=== PATIENT | male | born 1945 | race Caucasian/White ===

== ENCOUNTER 2019-10-15 11:25 | Emergency (ER) | payer MEDICARE, BC ==
[2019-10-15 11:50] VITALS: PULSE 74
--- NOTE | 2019-10-15 12:09 | EDM.PDOC ---
ED HPI GENERAL MEDICAL PROBLEM - General Chief Complaint: Laceration Stated Complaint: CUT HIS HEAD Time Seen by Provider: 10/15/19 11:42 Source of Information: Reports: Patient - History of Present Illness INITIAL COMMENTS - FREE TEXT/NARRATIVE: Srini is a 74 y/o male who comes to the ER via POV accompanied by his . He reports that last night about 0400 he fell out of bed and his head on the edge of an end table. He remembers sitting up by his bed on the floor and feeling blood run down his face. He does not remember falling out of bed, doesn't think he had LOC. He is on Coumadin 5mg daily for DVT prophylaxis. Treatments ONLINE CONTENT COORDINATOR: Reports: Cold Therapy Left Face/Facial Pain Score (Numeric/FACES): 2 - Related Data Allergies Allergy/AdvReac Type Severity Reaction Status Date / Time latex Allergy Blisters Verified 10/15/19 11:50 Home Meds: Home Meds Simvastatin 5 mg PO DAILY 03/05/13 [History] Warfarin Sodium [Jantoven] 5 mg PO DAILY 03/05/13 [History] Tamsulosin [Tamsulosin 24 Hr] 0.4 mg PO DAILY 10/15/19 [History] hydroCHLOROthiazide [Hydrochlorothiazide] 25 mg PO DAILY 10/15/19 [History] ED ROS GENERAL - Review of Systems Review Of Systems: See Below Constitutional: Reports: No Symptoms HEENT: Reports: No Symptoms Respiratory: Reports: No Symptoms Cardiovascular: Reports: No Symptoms Endocrine: Reports: No Symptoms GI/Abdominal: Reports: No Symptoms : Reports: No Symptoms Musculoskeletal: Reports: No Symptoms Skin: Reports: Other (laxceration above left eyebrow) Neurological: Reports: No Symptoms Psychiatric: Reports: No Symptoms Hematologic/Lymphatic: Reports: Easy Bleeding (on anticoagulants) Immunologic: Reports: No Symptoms ED EXAM, SKIN/RASH Exam: See Below Exam Limited By: No Limitations General Appearance: Alert, WD/WN, No Apparent Distress (Elderly male, ambulates into ER on own) Eye Exam: Bilateral Eye: EOMI, PERRL Ears: Normal External Exam, Normal Canal, Hearing Grossly Normal, Normal TMs Nose: Normal Inspection, Normal Mucosa Throat/Mouth: Normal Inspection, Normal Voice Head: Normocephalic, Other (note 0.5cm in a vertical fashion just superior to left eyebrow, not bleeding) Neck: Normal Inspection, Supple Respiratory/Chest: No Respiratory Distress, Lungs Clear Cardiovascular: Normal Peripheral Pulses, Regular Rate, Rhythm, No Murmur GI/Abdominal: Normal Bowel Sounds, Soft (Male) Exam: Deferred Rectal (Males) Exam: Deferred Back Exam: Normal Inspection Extremities: Normal Inspection, Normal Range of Motion, Normal Capillary Refill Neurological: Alert, Oriented, CN II-XII Intact, Normal Cognition, Normal Gait, No Motor/Sensory Deficits Psychiatric: Normal Affect, Normal Mood Skin: Warm, Dry, Intact, Normal Color, No Rash ED SKIN PROCEDURES - Laceration/Wound Repair Left Forehead Appearance: Linear Distal NVT: Neuro & Vascular Intact Anesthetic Type: Other (None) Skin Prep: Saline Closed with: Dermabond Lac/Wound length In cm: 0.5 Sterile Dressing Applied: Other (Bandaid) Tetanus Status Addressed: Yes (Last in 2006, not updated today since patient age and hx of reaction with last injection) Complications: No Progress/Comments: Patient tolerated the procedure well. He was given wound care instructions. EBL=none Course - Vital Signs Text/Narrative:: The patient was seen by the [facility]. Labs and Head CT ordered since patient is anticoagulated. The laceration on his forehead was repaired, see procedure note. Head CT and labs reviewed. No sx of bleeding noted, labs stable. Patient was given discharge instructions and left the ER in stable condition. Last Recorded V/S: Last Vital Signs Temp 37.1 C 10/15/19 12:29 Pulse 74 10/15/19 12:29 Resp 16 10/15/19 12:29 BP 124/70 10/15/19 12:29 Pulse Ox 94 L 10/15/19 12:29 - Orders/Labs/Meds Orders: Active Orders 24 hr Category Date Time Status INR,PT,PROTHROMBIN TIME [COAG] Stat Lab 10/15/19 12:03 Received PTT,PARTIAL THROMBOPLSTIN TIME [COAG] Stat Lab 10/15/19 12:03 Received UA RFX FEDERICO AND CULT IF INDIC [URIN] Stat Lab 10/15/19 12:18 Received Labs: Laboratory Tests 10/15/19 10/15/19 Range/Units 12:03 12:03 WBC 9.3 (4.0-10.0) x10^3/uL RBC 5.51 (4.5-6.0) x10^6/uL Hgb 16.9 (14.0-18.0) g/dL Hct 50.3 (40.0-52.0) % MCV 91.3 (78.0-93.0) fL MCH 30.7 (26.0-32.0) pg MCHC 33.6 (32.0-36.0) g/dL RDW Coeff of Maria Fernanda 13.3 (10.0-15.0) % Plt Count 205 (130-400) x10^3/uL Neut % (Auto) 72.1 (50.0-80.0) % Lymph % (Auto) 16.1 L (25.0-50.0) % [place] % (Auto) 10.3 (2.0-11.0) % Eos % (Auto) 1.3 (0.0-4.0) % Baso % (Auto) 0.2 (0.2-1.2) % Sodium 138 (136-145) mmol/L Potassium 4.0 (3.5-5.1) mmol/L Chloride 105 (98-107) mmol/L Carbon Dioxide 27 (21-32) mmol/L Anion Gap 10.0 (10-20) mmol/L BUN 26 H (7-18) mg/dL Creatinine 1.2 (0.70-1.30) mg/dL Est Cr Clr Drug Dosing 61.03 mL/min Estimated GFR (MDRD) 59 Glucose 112 H (74-106) mg/dL Calcium 9.1 (8.5-10.1) mg/dL Corrected Calcium 9.34 (8.5-10.1) mg/dL Total Bilirubin 0.7 (0.2-1.0) mg/dL AST 29 (15-37) U/L ALT 44 (16-63) U/L Alkaline Phosphatase 56 (46-116) U/L Total Protein 7.4 (6.4-8.2) g/dL Albumin 3.7 (3.4-5.0) g/dL Globulin 3.7 Albumin/Globulin Ratio 1.00 Departure - Departure Time of Disposition: 12:41 Disposition: Home, Self-Care 01 Condition: Good Clinical Impression: Laceration of skin, Chronic anticoagulation, Head injury due to trauma, Fall from bed, initial encounter - Discharge Information *PRESCRIPTION DRUG MONITORING PROGRAM REVIEWED*: No *COPY OF PRESCRIPTION DRUG MONITORING REPORT IN PATIENT KRISHNA: No Instructions: Sutures, Kumar, or Adhesive Wound Closure, [id number], Bleeding Precautions When on Anticoagulant Therapy, Adult Forms: ED Department Discharge Additional Instructions: -Keep the skin adhesive dry for 24 hours. [place] [address] hours then you may leave it open to the air. Do not attempt to pick off the skin adhesive until it has been in place for 7 days. -Monitor for any symptoms of infection including fever, redness, or drainage from the wound. -Resume your medications as prescribed by your primary provider. -Return to the ER for nay concerns. Sepsis Event Note (ED) - Evaluation Sepsis Screening Result: No Definite Risk - Focused Exam Vital Signs: Vital Signs Temp Pulse Resp BP Pulse Ox 10/15/19 12:29 37.1 C 74 16 124/70 94 L 10/15/19 11:43 36.7 C 74 16 131/69 94 L - My Orders Last 24 Hours: My Active Orders 10/15/19 12:03 INR,PT,PROTHROMBIN TIME [COAG] Stat PTT,PARTIAL THROMBOPLSTIN TIME [COAG] Stat 10/15/19 12:18 UA RFX FEDERICO AND CULT IF INDIC [URIN] Stat - Assessment/Plan Last 24 Hours: My Active Orders 10/15/19 12:03 INR,PT,PROTHROMBIN TIME [COAG] Stat PTT,PARTIAL THROMBOPLSTIN TIME [COAG] Stat 10/15/19 12:18 UA RFX FEDERICO AND CULT IF INDIC [URIN] Stat
[2019-10-15 12:31] VITALS: BP 124/70
--- NOTE | 2019-10-15 12:37 | CT ---
[id number] CT/CT Head WO IV EXAM: CT Head WO IV CLINICAL DATA: ANTICOAGULATED, HIT HEAD. FELL OUT OF BED AND HIT HEAD COMPARISON STUDY: None FINDINGS: No intracranial hemorrhage, extra-axial fluid collection, mass, or acute ischemia. Generalized parenchymal atrophy with scattered areas of nonspecific white matter disease, commonly seen as sequela of chronic microvascular ischemia. Soft tissues are unremarkable. Mild mucosal thickening in the maxillary sinuses. No evidence of aggressive sinusitis. IMPRESSION: No acute intracranial findings. J Carlos Iraheta DO 10/15/19 [id number] Thank you for allowing us to participate in the care of your patient.
[2019-10-15 12:48] LABS: PTT,PARTIAL THROMBOPLSTIN TIME 35.1 SEC (25.6-32.8)
== END 2019-10-15 12:50 | disposition home or self-care (01) ==
LOC: VM.ED 11:25
DX: S09.90XA Unspecified injury of head, initial encounter (principal); S01.81XA Laceration without foreign body of other part of head, initial encounter; Z79.01 Long term (current) use of anticoagulants; Z91.040 Latex allergy status; Z79.899 Other long term (current) drug therapy; W06.XXXA Fall from bed, initial encounter
CPT/HCPCS: 12011; 36415; 70450; 80053; 81001; 85025; 85610; 85730; 99283; 99283-25

== ENCOUNTER 2023-03-05 15:14 | Inpatient (IN) | payer MEDICARE, BC ==
[2023-03-05] MEDS ORDERED: Sodium Chloride 0.9% 10 ML Syringe FLUSH PRN (15:42)
[2023-03-05] MEDS ORDERED: Sodium Chloride 0.9% 1,000 ML IV ONE (15:42)
[2023-03-05] MEDS ORDERED: Acetaminophen 325 MG Tab PO ONE (15:42)
[2023-03-05] MEDS ORDERED: cefTRIAXone 2 GM Vial IVPUSH ONE (15:42)
[2023-03-05 15:59] LABS: APPEARANCE,URINE CLOUDY (CLEAR); BILIRUBIN,URINE SMALL (NEGATIVE); COLOR,URINE DARK YELLOW (YELLOW); GLUCOSE,URINE NEGATIVE (NEGATIVE); KETONES,URINE NEGATIVE (NEGATIVE); LEUKOCYTE ESTERASE,URINE NEGATIVE (NEGATIVE); NITRITE,URINE NEGATIVE (NEGATIVE); OCCULT BLOOD,URINE LARGE (NEGATIVE); PH,URINE 5.5 (5.0-8.0); PROTEIN,URINE 100 mg/dL (NEGATIVE); UROBILINOGEN,URINE 0.2 EU/dL (0.2)
[2023-03-05 16:16] LABS: BASOPHILS PERCENT AUTO 0.2 % (0.2-1.2); EOSINOPHILS PERCENT AUTO 0.1 % (0.0-4.0); HEMATOCRIT 43.2 % (40.0-52.0); HEMOGLOBIN 14.5 g/dL (14.0-18.0); IMMATURE GRAN ABSOLUTE AUTO 0.09 x10^3/uL (0.00-0.07); LYMPHOCYTES ABSOLUTE AUTO 0.4 x10^3/uL (1.0-4.8); LYMPHOCYTES PERCENT AUTO 3.9 % (25.0-50.0); MEAN CORPUSCULAR HGB CONC 33.6 g/dL (32.0-36.0); MEAN CORPUSCULAR VOLUME 95.4 fL (78.0-93.0); MONOCYTES ABSOLUTE AUTO 1.1 x10^3/uL (0.0-0.8); MONOCYTES PERCENT AUTO 12.5 % (2.0-11.0); NEUTROPHILS ABSOLUTE AUTO 7.4 x10^3/uL (1.8-7.7); NEUTROPHILS PERCENT AUTO 82.3 % (50.0-80.0); PLATELET COUNT,PLT 224 x10^3/uL (130-400); RED BLOOD CELL COUNT 4.53 x10^6/uL (4.5-6.0)
[2023-03-05 16:26] LABS: INR 2.3 (0.9-1.1); PROTHROMBIN TIME 23.8 SEC (9.5-12.2)
[2023-03-05 16:28] LABS: AMORPHOUS SEDIMENT,URINE MANY; BACTERIA,URINE FEW /HPF (NOT SEEN); HYALINE CASTS,URINE MODERATE; MUCUS,URINE FEW /LPF (NOT SEEN); RBC,URINE 20-30 /HPF (NOT SEEN); SQUAMOUS EPITHELIAL CELLS,UR NOT SEEN /HPF (NOT SEEN); WBC,URINE 0-5 /HPF (NOT SEEN)
[2023-03-05 16:32] LABS: A/G RATIO 0.78; ALANINE AMINOTRANSFERASE,ALT 49 U/L (16-63); ALBUMIN 2.9 g/dL (3.4-5.0); ALKALINE PHOSPHATASE 67 U/L (46-116); ASPARTATE AMNIOTRANSFERASE,AST 117 U/L (15-37); BILIRUBIN TOTAL 0.9 mg/dL (0.2-1.0); BLOOD UREA NITROGEN,BUN 30 mg/dL (7-18); C-REACTIVE PROTEIN 7.21 mg/dL (<=0.50); CALCIUM 8.6 mg/dL (8.5-10.1); CARBON DIOXIDE,CO2 24 mmol/L (21-32); CHLORIDE,CL 108 mmol/L (98-107); CREATININE 1.3 mg/dL (0.70-1.30); GLUCOSE RANDOM 101 mg/dL (70-99); POTASSIUM,K 3.9 mmol/L (3.5-5.1); PROTEIN TOTAL,TP 6.6 g/dL (6.4-8.2); SODIUM,NA 145 mmol/L (136-145)
[2023-03-05 16:33] LABS: ANION GAP 16.9 mmol/L (5-15); ESTIMATED GFR 57 mL/min (>=60)
[2023-03-05 16:35] LABS: LACTIC ACID 1.8 mmol/L (0.4-2.0)
[2023-03-05 17:18] LABS: CORONAVIRUS COVID-19 NAA NEGATIVE (NEGATIVE); INFLUENZA A NAA NEGATIVE (NEGATIVE); INFLUENZA B NAA NEGATIVE (NEGATIVE); RESPIRATORY SYNCYTIAL VIR NAA NEGATIVE (NEGATIVE)
[2023-03-05] MEDS: Sodium Chloride 0.9% 1,000 ML IV ONE (17:28)
[2023-03-05] MEDS: Sodium Chloride 0.9% 1,000 ML IV SCH (22:18)
[2023-03-05] MEDS ORDERED: Piperacillin/Tazobactam 4.5 GM in Sodium Chloride 0.9% 100 ML IV ONE (22:45)
[2023-03-06] MEDS: Sodium Chloride 0.9% 1,000 ML IV SCH ×4 (03:59→19:27)
[2023-03-06] MEDS: Acetaminophen 500 MG Tab PO PRN ×3 (04:05→20:50)
[2023-03-06] MEDS: Piperacillin/Tazobactam 3.375 GM in Sodium Chloride 0.9% 100 ML IV SCH ×3 (05:48→22:31)
[2023-03-06] MEDS ORDERED: ZYTIGA 250 MG PO SCH (07:00)
[2023-03-06 08:12] LABS: BASOPHILS PERCENT AUTO 0.1 % (0.2-1.2); EOSINOPHILS PERCENT AUTO 0.4 % (0.0-4.0); HEMATOCRIT 39.4 % (40.0-52.0); IMMATURE GRAN ABSOLUTE AUTO 0.04 x10^3/uL (0.00-0.07); LYMPHOCYTES PERCENT AUTO 4.1 % (25.0-50.0); MEAN CORPUSCULAR HEMOGLOBIN 31.9 pg (26.0-32.0); MEAN CORPUSCULAR VOLUME 96.8 fL (78.0-93.0); MONOCYTES ABSOLUTE AUTO 0.8 x10^3/uL (0.0-0.8); MONOCYTES PERCENT AUTO 11.1 % (2.0-11.0); NEUTROPHILS ABSOLUTE AUTO 6.3 x10^3/uL (1.8-7.7); NEUTROPHILS PERCENT AUTO 83.8 % (50.0-80.0); PLATELET COUNT,PLT 187 x10^3/uL (130-400); RED BLOOD CELL COUNT 4.07 x10^6/uL (4.5-6.0); WHITE BLOOD CELL COUNT,WBC 7.5 x10^3/uL (4.0-10.0)
[2023-03-06 08:26] LABS: INR 2.6 (0.9-1.1)
[2023-03-06 08:34] LABS: LYMPHOCYTES ABSOLUTE AUTO 0.3 x10^3/uL (1.0-4.8)
[2023-03-06 08:46] LABS: A/G RATIO 0.72; ALBUMIN 2.1 g/dL (3.4-5.0); BILIRUBIN TOTAL 0.6 mg/dL (0.2-1.0); C-REACTIVE PROTEIN 17.94 mg/dL (<=0.50); CALCIUM 8.1 mg/dL (8.5-10.1); CREATININE 1.3 mg/dL (0.70-1.30); EST CRCL DRUG DOSING (CG) 52.23 mL/min
[2023-03-06] MEDS: predniSONE 5 MG Tab PO SCH (09:07)
[2023-03-06] MEDS: amLODIPine 5 MG Tab PO SCH (09:13)
[2023-03-06] MEDS ORDERED: oxyCODONE 5 MG Tab PO PRN (12:28)
[2023-03-06] MEDS: Potassium Chloride Riders 20 MEQ in Premix Bag 1 BAG IV SCH ×2 (12:53→14:47)
[2023-03-06] MEDS: ZYTIGA 250 MG PO SCH (15:11)
[2023-03-06] MEDS ORDERED: Warfarin 5 MG Tab PO ONE ×2 (17:00→20:00)
[2023-03-06] MEDS: Tamsulosin 0.4 MG Cap.ER PO SCH (20:25)
[2023-03-07] MEDS: Sodium Chloride 0.9% 1,000 ML IV SCH ×4 (00:29→20:02)
[2023-03-07] MEDS: Acetaminophen 500 MG Tab PO PRN ×2 (05:38→12:47)
[2023-03-07] MEDS: Piperacillin/Tazobactam 3.375 GM in Sodium Chloride 0.9% 100 ML IV SCH ×3 (05:46→22:15)
[2023-03-07] MEDS: amLODIPine 5 MG Tab PO SCH (08:17)
[2023-03-07] MEDS: predniSONE 5 MG Tab PO SCH (08:17)
[2023-03-07 08:22] LABS: BASOPHILS PERCENT AUTO 0.1 % (0.2-1.2); EOSINOPHILS ABSOLUTE AUTO 0.1 x10^3/uL (0.0-0.5); EOSINOPHILS PERCENT AUTO 1.6 % (0.0-4.0); HEMATOCRIT 40.6 % (40.0-52.0); HEMOGLOBIN 13.4 g/dL (14.0-18.0); IMMATURE GRAN ABSOLUTE AUTO 0.08 x10^3/uL (0.00-0.07); LYMPHOCYTES PERCENT AUTO 4.6 % (25.0-50.0); MEAN CORPUSCULAR HEMOGLOBIN 31.6 pg (26.0-32.0); MEAN CORPUSCULAR VOLUME 95.8 fL (78.0-93.0); MONOCYTES ABSOLUTE AUTO 0.9 x10^3/uL (0.0-0.8); MONOCYTES PERCENT AUTO 12.4 % (2.0-11.0); NEUTROPHILS ABSOLUTE AUTO 5.9 x10^3/uL (1.8-7.7); NEUTROPHILS PERCENT AUTO 80.2 % (50.0-80.0); PLATELET COUNT,PLT 178 x10^3/uL (130-400); RED BLOOD CELL COUNT 4.24 x10^6/uL (4.5-6.0); WHITE BLOOD CELL COUNT,WBC 7.4 x10^3/uL (4.0-10.0)
[2023-03-07 08:41] LABS: INR 2.9 (0.9-1.1); PROTHROMBIN TIME 30.5 SEC (9.5-12.2)
[2023-03-07 08:46] LABS: LYMPHOCYTES ABSOLUTE AUTO 0.3 x10^3/uL (1.0-4.8)
[2023-03-07 08:56] LABS: A/G RATIO 0.65; BILIRUBIN TOTAL 0.7 mg/dL (0.2-1.0); CREATININE 1.1 mg/dL (0.70-1.30); EST CRCL DRUG DOSING (CG) 61.73 mL/min; MAGNESIUM 1.4 mg/dL (1.8-2.4); PROTEIN TOTAL,TP 5.1 g/dL (6.4-8.2)
[2023-03-07] MEDS ORDERED: Potassium Chloride Riders 20 MEQ in Premix Bag 1 BAG IV SCH (10:45)
[2023-03-07] MEDS ORDERED: Magnesium Sulfate/Water 2 GM in Premix Bag 1 BAG IV ONE (10:46)
[2023-03-07] MEDS ORDERED: Magnesium Chloride 64 MG Tab.ER PO ONE (11:04)
[2023-03-07] MEDS: Potassium Chloride 20 MEQ Tab.ER PO SCH ×2 (12:36→21:02)
[2023-03-07] MEDS: ZYTIGA 250 MG PO SCH (14:35)
[2023-03-07] MEDS ORDERED: Warfarin 2.5 MG Tab PO ONE (17:00)
[2023-03-07] MEDS: Tamsulosin 0.4 MG Cap.ER PO SCH (21:02)
[2023-03-08] MEDS: Acetaminophen 500 MG Tab PO PRN ×2 (06:29→19:22)
[2023-03-08] MEDS: Sodium Chloride 0.9% 1,000 ML IV SCH ×2 (06:32→16:38)
[2023-03-08] MEDS: Piperacillin/Tazobactam 3.375 GM in Sodium Chloride 0.9% 100 ML IV SCH ×3 (06:33→22:31)
[2023-03-08 08:12] LABS: BASOPHILS PERCENT AUTO 0.2 % (0.2-1.2); EOSINOPHILS ABSOLUTE AUTO 0.2 x10^3/uL (0.0-0.5); HEMATOCRIT 39.1 % (40.0-52.0); HEMOGLOBIN 13.4 g/dL (14.0-18.0); IMMATURE GRAN ABSOLUTE AUTO 0.14 x10^3/uL (0.00-0.07); LYMPHOCYTES ABSOLUTE AUTO 0.4 x10^3/uL (1.0-4.8); LYMPHOCYTES PERCENT AUTO 6.9 % (25.0-50.0); MEAN CORPUSCULAR HEMOGLOBIN 32.7 pg (26.0-32.0); MEAN CORPUSCULAR HGB CONC 34.3 g/dL (32.0-36.0); MEAN CORPUSCULAR VOLUME 95.4 fL (78.0-93.0); MONOCYTES ABSOLUTE AUTO 0.8 x10^3/uL (0.0-0.8); MONOCYTES PERCENT AUTO 12.8 % (2.0-11.0); NEUTROPHILS ABSOLUTE AUTO 4.8 x10^3/uL (1.8-7.7); NEUTROPHILS PERCENT AUTO 74.9 % (50.0-80.0); WHITE BLOOD CELL COUNT,WBC 6.4 x10^3/uL (4.0-10.0)
[2023-03-08] MEDS: Potassium Chloride 20 MEQ Tab.ER PO SCH ×2 (08:12→20:54)
[2023-03-08 08:13] LABS: INR 3.8 (0.9-1.1); PROTHROMBIN TIME 38.7 SEC (9.5-12.2)
[2023-03-08] MEDS: predniSONE 5 MG Tab PO SCH (08:13)
[2023-03-08] MEDS: amLODIPine 5 MG Tab PO SCH (08:13)
[2023-03-08 08:26] LABS: A/G RATIO 0.65; ANION GAP 13.4 mmol/L (5-15); BILIRUBIN TOTAL 0.6 mg/dL (0.2-1.0); CALCIUM 7.9 mg/dL (8.5-10.1); EST CRCL DRUG DOSING (CG) 67.9 mL/min; MAGNESIUM 1.4 mg/dL (1.8-2.4); POTASSIUM,K 3.4 mmol/L (3.5-5.1); PROTEIN TOTAL,TP 5.1 g/dL (6.4-8.2)
[2023-03-08 08:32] LABS: PLATELET COUNT,PLT 199 x10^3/uL (130-400)
[2023-03-08] MEDS: ZYTIGA 250 MG PO SCH (14:17)
[2023-03-08] MEDS ORDERED: Magnesium Chloride 64 MG Tab.ER PO ONE (17:00)
[2023-03-08] MEDS: Tamsulosin 0.4 MG Cap.ER PO SCH (20:54)
[2023-03-09] MEDS: Sodium Chloride 0.9% 1,000 ML IV SCH ×2 (02:42→12:46)
[2023-03-09] MEDS: Acetaminophen 500 MG Tab PO PRN ×2 (03:12→21:58)
[2023-03-09] MEDS: Piperacillin/Tazobactam 3.375 GM in Sodium Chloride 0.9% 100 ML IV SCH (06:14)
[2023-03-09 06:52] LABS: BASOPHILS PERCENT AUTO 0.6 % (0.2-1.2); EOSINOPHILS ABSOLUTE AUTO 0.2 x10^3/uL (0.0-0.5); EOSINOPHILS PERCENT AUTO 3.3 % (0.0-4.0); HEMATOCRIT 41.3 % (40.0-52.0); HEMOGLOBIN 13.8 g/dL (14.0-18.0); IMMATURE GRAN ABSOLUTE AUTO 0.29 x10^3/uL (0.00-0.07); LYMPHOCYTES ABSOLUTE AUTO 0.6 x10^3/uL (1.0-4.8); MEAN CORPUSCULAR HEMOGLOBIN 31.7 pg (26.0-32.0); MEAN CORPUSCULAR HGB CONC 33.4 g/dL (32.0-36.0); MEAN CORPUSCULAR VOLUME 94.7 fL (78.0-93.0); MONOCYTES ABSOLUTE AUTO 0.8 x10^3/uL (0.0-0.8); MONOCYTES PERCENT AUTO 11.2 % (2.0-11.0); NEUTROPHILS ABSOLUTE AUTO 5.3 x10^3/uL (1.8-7.7); NEUTROPHILS PERCENT AUTO 72.8 % (50.0-80.0); PLATELET COUNT,PLT 216 x10^3/uL (130-400); RED BLOOD CELL COUNT 4.36 x10^6/uL (4.5-6.0); WHITE BLOOD CELL COUNT,WBC 7.2 x10^3/uL (4.0-10.0)
[2023-03-09 07:01] LABS: LYMPHOCYTES PERCENT AUTO 8.1 % (25.0-50.0)
[2023-03-09 07:06] LABS: INR 2.9 (0.9-1.1); PROTHROMBIN TIME 30.4 SEC (9.5-12.2)
[2023-03-09 07:26] LABS: A/G RATIO 0.66; ALBUMIN 2.1 g/dL (3.4-5.0); ANION GAP 12.7 mmol/L (5-15); BILIRUBIN TOTAL 0.7 mg/dL (0.2-1.0); CALCIUM 8.2 mg/dL (8.5-10.1); CREATININE 1.1 mg/dL (0.70-1.30); EST CRCL DRUG DOSING (CG) 61.73 mL/min; POTASSIUM,K 3.7 mmol/L (3.5-5.1); PROTEIN TOTAL,TP 5.3 g/dL (6.4-8.2)
[2023-03-09] MEDS: Potassium Chloride 20 MEQ Tab.ER PO SCH ×2 (08:22→17:31)
[2023-03-09] MEDS: predniSONE 5 MG Tab PO SCH (08:22)
[2023-03-09] MEDS: amLODIPine 5 MG Tab PO SCH (08:23)
[2023-03-09] MEDS: ZYTIGA 250 MG PO SCH (15:08)
[2023-03-09] MEDS ORDERED: Warfarin 2.5 MG Tab PO ONE (17:00)
[2023-03-09] MEDS: Tamsulosin 0.4 MG Cap.ER PO SCH (21:38)
[2023-03-10] MEDS: Acetaminophen 500 MG Tab PO PRN (07:26)
[2023-03-10 07:40] LABS: A/G RATIO 0.72; ALBUMIN 2.1 g/dL (3.4-5.0); BILIRUBIN TOTAL 0.6 mg/dL (0.2-1.0); CALCIUM 8.5 mg/dL (8.5-10.1); EST CRCL DRUG DOSING (CG) 67.9 mL/min; POTASSIUM,K 3.5 mmol/L (3.5-5.1)
[2023-03-10 07:41] LABS: ANION GAP 15.5 mmol/L (5-15)
[2023-03-10 07:54] LABS: INR 2.4 (0.9-1.1); PROTHROMBIN TIME 25.2 SEC (9.5-12.2)
[2023-03-10] MEDS: amLODIPine 5 MG Tab PO SCH (08:22)
[2023-03-10] MEDS: Potassium Chloride 20 MEQ Tab.ER PO SCH (08:22)
[2023-03-10] MEDS: predniSONE 5 MG Tab PO SCH (08:22)
[2023-03-10 10:40] VITALS: BP 163/75; PULSE 87
[2023-03-10] MEDS ORDERED: TACROLIMUS TOP SCH (13:23)
[2023-03-10] MEDS ORDERED: Warfarin 5 MG Tab PO SCH (18:00)
[2023-03-10] MEDS ORDERED: Tamsulosin 0.4 MG Cap.ER PO SCH (21:00)
[2023-03-10] MEDS ORDERED: Triamcinolone Acetonide 0.1% Crm 15 GM Tube TOP SCH (21:00)
[2023-03-11] MEDS ORDERED: PYRIDOXINE HCL 25 MG PO SCH (09:00)
[2023-03-11] MEDS ORDERED: predniSONE 5 MG Tab PO SCH (09:00)
[2023-03-11] MEDS ORDERED: amLODIPine 5 MG Tab PO SCH (09:00)
[2023-03-12] MEDS ORDERED: Warfarin 2.5 MG Tab PO SCH (18:00)
== END 2023-03-10 11:00 | disposition swing bed (61) | DRG 564 ==
LOC: VM.ED 15:14 → VM.MS 17:36
PROVIDERS: ADMIT Nurse Practitioner Family; ATTEND Nurse Practitioner Family
DX: T79.6XXA Traumatic ischemia of muscle, initial encounter (principal); A41.9 Sepsis, unspecified organism; R50.9 Fever, unspecified; L97.319 Non-pressure chronic ulcer of right ankle with unspecified severity; L97.329 Non-pressure chronic ulcer of left ankle with unspecified severity; E78.00 Pure hypercholesterolemia, unspecified; I10 Essential (primary) hypertension; N40.0 Benign prostatic hyperplasia without lower urinary tract symptoms; Z20.822 Contact with and (suspected) exposure to COVID-19; I83.93 Asymptomatic varicose veins of bilateral lower extremities; I83.013 Varicose veins of right lower extremity with ulcer of ankle; W06.XXXA Fall from bed, initial encounter; I83.023 Varicose veins of left lower extremity with ulcer of ankle; S30.820A Blister (nonthermal) of lower back and pelvis, initial encounter; Z91.040 Latex allergy status; Z79.01 Long term (current) use of anticoagulants; Z79.899 Other long term (current) drug therapy; Z11.52 Encounter for screening for COVID-19; Z86.718 Personal history of other venous thrombosis and embolism; Z98.890 Other specified postprocedural states; Z85.46 Personal history of malignant neoplasm of prostate
CPT/HCPCS: 0241U; 36415; 70450; 71045; 80053; 81001; 82550; 83605; 83735; 84145; 84153; 85025; 85610; 86140; 87040; 87086; 97110-GP; 97116-GP; 97163-GP; 99284; A9270-GY; J0696; J2543; J3480; J3490; J7030; J7512

== ENCOUNTER 2023-03-10 09:40 | Inpatient (IN) | payer MEDICARE, BC ==
[2023-03-10] MEDS ORDERED: TACROLIMUS TOP SCH (13:07)
[2023-03-10] MEDS: Warfarin 5 MG Tab PO SCH (22:20)
[2023-03-10] MEDS: Tamsulosin 0.4 MG Cap.ER PO SCH (22:21)
[2023-03-10] MEDS: Triamcinolone Acetonide 0.1% Crm 15 GM Tube TOP SCH (22:25)
[2023-03-11 06:57] LABS: INR 1.8 (0.9-1.1); PROTHROMBIN TIME 18.5 SEC (9.5-12.2)
[2023-03-11] MEDS: Vitamin B6-pyridOXINE 50 MG Tab PO SCH (09:54)
[2023-03-11] MEDS: predniSONE 5 MG Tab PO SCH (09:54)
[2023-03-11] MEDS: amLODIPine 5 MG Tab PO SCH (09:55)
[2023-03-11] MEDS: Triamcinolone Acetonide 0.1% Crm 15 GM Tube TOP SCH (09:57)
[2023-03-11] MEDS: Acetaminophen 500 MG Tab PO PRN (21:02)
[2023-03-11] MEDS: Warfarin 5 MG Tab PO SCH (21:03)
[2023-03-11] MEDS: Tamsulosin 0.4 MG Cap.ER PO SCH (21:03)
[2023-03-12] MEDS: Triamcinolone Acetonide 0.1% Crm 15 GM Tube TOP SCH ×2 (01:18→09:54)
[2023-03-12 07:48] LABS: INR 1.7 (0.9-1.1); PROTHROMBIN TIME 18.4 SEC (9.5-12.2)
[2023-03-12] MEDS: amLODIPine 5 MG Tab PO SCH (09:49)
[2023-03-12] MEDS: predniSONE 5 MG Tab PO SCH (09:49)
[2023-03-12] MEDS: Vitamin B6-pyridOXINE 50 MG Tab PO SCH (09:53)
[2023-03-12] MEDS: Acetaminophen 500 MG Tab PO PRN ×2 (09:56→21:56)
[2023-03-12] MEDS: Nystatin Crm 30 GM Tube TOP SCH ×2 (15:55→21:58)
[2023-03-12] MEDS ORDERED: Warfarin 5 MG Tab PO ONE (21:00)
[2023-03-12] MEDS: Tamsulosin 0.4 MG Cap.ER PO SCH (21:57)
[2023-03-13] MEDS: Vitamin B6-pyridOXINE 50 MG Tab PO SCH (08:03)
[2023-03-13] MEDS: Nystatin Crm 30 GM Tube TOP SCH ×2 (08:05→21:11)
[2023-03-13] MEDS: amLODIPine 5 MG Tab PO SCH (08:06)
[2023-03-13 08:30] LABS: INR 2.1 (0.9-1.1); PROTHROMBIN TIME 21.7 SEC (9.5-12.2)
[2023-03-13] MEDS: predniSONE 5 MG Tab PO SCH (10:06)
[2023-03-13] MEDS: Tamsulosin 0.4 MG Cap.ER PO SCH (21:09)
[2023-03-13] MEDS: Warfarin 5 MG Tab PO SCH (21:10)
[2023-03-14 08:33] LABS: PROTHROMBIN TIME 21.2 SEC (9.5-12.2)
[2023-03-14] MEDS: Vitamin B6-pyridOXINE 50 MG Tab PO SCH (09:08)
[2023-03-14] MEDS: Nystatin Crm 30 GM Tube TOP SCH ×2 (09:10→21:08)
[2023-03-14] MEDS: predniSONE 5 MG Tab PO SCH (09:10)
[2023-03-14] MEDS: amLODIPine 5 MG Tab PO SCH (09:10)
[2023-03-14] MEDS: Warfarin 5 MG Tab PO SCH (21:07)
[2023-03-14] MEDS: Tamsulosin 0.4 MG Cap.ER PO SCH (21:08)
[2023-03-15 07:24] LABS: INR 2.2 (0.9-1.1); PROTHROMBIN TIME 22.9 SEC (9.5-12.2)
[2023-03-15] MEDS: amLODIPine 5 MG Tab PO SCH (08:44)
[2023-03-15] MEDS: Vitamin B6-pyridOXINE 50 MG Tab PO SCH (08:44)
[2023-03-15] MEDS: predniSONE 5 MG Tab PO SCH (08:45)
[2023-03-15] MEDS: Nystatin Crm 30 GM Tube TOP SCH ×2 (08:49→20:48)
[2023-03-15] MEDS: Tamsulosin 0.4 MG Cap.ER PO SCH (20:47)
[2023-03-15] MEDS: Warfarin 2.5 MG Tab PO SCH (20:48)
[2023-03-16] MEDS: amLODIPine 5 MG Tab PO SCH (09:30)
[2023-03-16] MEDS: predniSONE 5 MG Tab PO SCH (09:31)
[2023-03-16] MEDS: Vitamin B6-pyridOXINE 50 MG Tab PO SCH (09:31)
[2023-03-16] MEDS: Nystatin Crm 30 GM Tube TOP SCH ×2 (09:32→20:27)
[2023-03-16] MEDS: Tamsulosin 0.4 MG Cap.ER PO SCH (20:26)
[2023-03-16] MEDS: Warfarin 5 MG Tab PO SCH (20:27)
[2023-03-17] MEDS: Vitamin B6-pyridOXINE 50 MG Tab PO SCH (09:12)
[2023-03-17] MEDS: amLODIPine 5 MG Tab PO SCH (09:12)
[2023-03-17] MEDS: Nystatin Crm 30 GM Tube TOP SCH ×2 (09:13→20:55)
[2023-03-17] MEDS: Tamsulosin 0.4 MG Cap.ER PO SCH (20:55)
[2023-03-17] MEDS: Warfarin 5 MG Tab PO SCH (20:55)
[2023-03-18] MEDS: Vitamin B6-pyridOXINE 50 MG Tab PO SCH (08:26)
[2023-03-18] MEDS: Nystatin Crm 30 GM Tube TOP SCH ×2 (08:26→21:58)
[2023-03-18] MEDS: amLODIPine 5 MG Tab PO SCH (08:26)
[2023-03-18] MEDS: Warfarin 5 MG Tab PO SCH ×2 (21:52→21:58)
[2023-03-18] MEDS: Tamsulosin 0.4 MG Cap.ER PO SCH (21:52)
[2023-03-19] MEDS: Acetaminophen 500 MG Tab PO PRN (00:44)
[2023-03-19] MEDS: Vitamin B6-pyridOXINE 50 MG Tab PO SCH (09:40)
[2023-03-19] MEDS: Nystatin Crm 30 GM Tube TOP SCH ×2 (09:43→21:13)
[2023-03-19] MEDS: amLODIPine 5 MG Tab PO SCH (09:43)
[2023-03-19] MEDS: Tamsulosin 0.4 MG Cap.ER PO SCH (21:13)
[2023-03-19] MEDS: Warfarin 2.5 MG Tab PO SCH (21:13)
[2023-03-20] MEDS: Nystatin Crm 30 GM Tube TOP SCH ×2 (08:06→21:29)
[2023-03-20] MEDS: amLODIPine 5 MG Tab PO SCH (08:06)
[2023-03-20] MEDS: Vitamin B6-pyridOXINE 50 MG Tab PO SCH (08:06)
[2023-03-20] MEDS: Hydrochlorothiazide 12.5 MG Cap PO SCH (11:15)
[2023-03-20] MEDS: Tamsulosin 0.4 MG Cap.ER PO SCH (21:27)
[2023-03-20] MEDS: Warfarin 5 MG Tab PO SCH (21:28)
[2023-03-21 08:04] LABS: BASOPHILS PERCENT AUTO 0.5 % (0.2-1.2); EOSINOPHILS ABSOLUTE AUTO 0.3 x10^3/uL (0.0-0.5); EOSINOPHILS PERCENT AUTO 4.2 % (0.0-4.0); HEMATOCRIT 40.9 % (40.0-52.0); HEMOGLOBIN 13.4 g/dL (14.0-18.0); IMMATURE GRAN ABSOLUTE AUTO 0.06 x10^3/uL (0.00-0.07); LYMPHOCYTES ABSOLUTE AUTO 0.8 x10^3/uL (1.0-4.8); LYMPHOCYTES PERCENT AUTO 12.2 % (25.0-50.0); MEAN CORPUSCULAR HEMOGLOBIN 31.5 pg (26.0-32.0); MEAN CORPUSCULAR HGB CONC 32.8 g/dL (32.0-36.0); MEAN CORPUSCULAR VOLUME 96.2 fL (78.0-93.0); MONOCYTES ABSOLUTE AUTO 1.2 x10^3/uL (0.0-0.8); MONOCYTES PERCENT AUTO 17.6 % (2.0-11.0); NEUTROPHILS ABSOLUTE AUTO 4.3 x10^3/uL (1.8-7.7); NEUTROPHILS PERCENT AUTO 64.6 % (50.0-80.0); PLATELET COUNT,PLT 320 x10^3/uL (130-400); RED BLOOD CELL COUNT 4.25 x10^6/uL (4.5-6.0); WHITE BLOOD CELL COUNT,WBC 6.6 x10^3/uL (4.0-10.0)
[2023-03-21 08:19] LABS: INR 1.8 (0.9-1.1); PROTHROMBIN TIME 19.3 SEC (9.5-12.2)
[2023-03-21 08:22] LABS: A/G RATIO 0.76; ALBUMIN 2.8 g/dL (3.4-5.0); BILIRUBIN TOTAL 0.6 mg/dL (0.2-1.0); CALCIUM 9.1 mg/dL (8.5-10.1); CREATININE 1.1 mg/dL (0.70-1.30); EST CRCL DRUG DOSING (CG) 61.73 mL/min; POTASSIUM,K 3.7 mmol/L (3.5-5.1); PROTEIN TOTAL,TP 6.5 g/dL (6.4-8.2)
[2023-03-21 08:24] LABS: ANION GAP 16.7 mmol/L (5-15)
[2023-03-21] MEDS: Vitamin B6-pyridOXINE 50 MG Tab PO SCH (08:33)
[2023-03-21] MEDS: Nystatin Crm 30 GM Tube TOP SCH (08:33)
[2023-03-21] MEDS: Hydrochlorothiazide 12.5 MG Cap PO SCH (08:33)
[2023-03-21] MEDS: amLODIPine 5 MG Tab PO SCH (08:36)
[2023-03-21 14:06] VITALS: BP 148/70; PULSE 95
== END 2023-03-21 10:00 | disposition home health service (06) | DRG 948 ==
LOC: VM.MS 09:50
PROVIDERS: ADMIT Nurse Practitioner Family; ATTEND Nurse Practitioner Family
DX: R53.1 Weakness (principal); E78.00 Pure hypercholesterolemia, unspecified; N40.0 Benign prostatic hyperplasia without lower urinary tract symptoms; I10 Essential (primary) hypertension; Z85.46 Personal history of malignant neoplasm of prostate; Z79.01 Long term (current) use of anticoagulants; Z79.899 Other long term (current) drug therapy; Z86.718 Personal history of other venous thrombosis and embolism; Z91.041 Radiographic dye allergy status
CPT/HCPCS: 36415; 80053; 85025; 85610; 97110-GP; 97116-GP; 97165-GO; 97535-GO; A9270-GY; J7512

== ENCOUNTER 2024-11-22 16:25 | Emergency (ER) | payer MEDICARE, BC ==
[2024-11-22 16:57] VITALS: BP 170/77; PULSE 83
== END 2024-11-22 18:35 | disposition home or self-care (01) ==
LOC: VM.ED 16:25
DX: M54.2 Cervicalgia (principal); M25.512 Pain in left shoulder; I10 Essential (primary) hypertension; E78.00 Pure hypercholesterolemia, unspecified; Z79.899 Other long term (current) drug therapy; Z79.01 Long term (current) use of anticoagulants; Z91.040 Latex allergy status; W19.XXXA Unspecified fall, initial encounter
CPT/HCPCS: 72040; 73030-LT; 99283; 99284